=== PATIENT | female | born 1985 | race Caucasian/White ===

== ENCOUNTER → 2018-12-13 | Outpatient (REF) | payer BC | LOC: M LAB LCGH 15:01 | PROVIDERS: ATTEND Surgery | DX: L98.9 Disorder of the skin and subcutaneous tissue, unspecified (principal) ==

== ENCOUNTER → 2019-03-26 | Outpatient (REF) | payer BC | LOC: M LAB LCGH 12:55 | PROVIDERS: ATTEND Surgery | DX: C49.21 Malignant neoplasm of connective and soft tissue of right lower limb, including hip (principal) ==